=== PATIENT | male | born 1955 | race Caucasian/White ===

== ENCOUNTER 2018-03-27 16:15 | Emergency (ER) | payer SELFPAY ==
[~2018-03-27] VITALS: Ht 180.3 cm; Wt 68.0 kg
[~2018-03-27 16:15] MED LIST: CIPR500T2 PO; CLON-352 PO; ENOX40P SQ; FOLI1TAB PO; LORT5TAB PO; LORT7.5T3 PO; THIA50CA PO; Z.0.NO CURRENT MEDS
[2018-03-27 16:36] VITALS: BP 157/78; PULSE 64; RESP 15; TEMP 98.7; O2SAT 98
[2018-03-27] MEDS ORDERED: IBUP1TAB7 PO (17:38)
--- NOTE | 2018-03-27 17:38 | PD ---
HPI Chief Complaint: Injury Time Seen by Provider: 16:55 Travel History International Travel<30 days: No Contact w/Intl Traveler<30days: No Traveled to known affect area: No History of Present Illness HPI 62-year-old male presents to the emergency department with complaint of right foot pain since Monday after he dropped a chair on it. He thinks that is why it is swollen and and painful, but does not know for sure. Has been ambulatory on the affected extremity. Denies paresthesias, loss of sensation, decreased range of motion, decreased strength to the affected extremity. Has tried ice, warm water, Epsom salts soaks for symptom management. Rates pain 6/10. Described as throbbing. Better at rest. Worse with ambulation, palpation. No primary care provider. No known allergies. Denies significant past medical history. Has no other medical complaints. No other modifying factors or associated signs and symptoms. PFSH Past Medical History Cancer: No Cardiovascular Problems: No Diminished Hearing: No Endocrine: No Genitourinary: No Immune Disorder: No Musculoskeletal: No Neurologic: No Psychiatric: No Reproductive: No Respiratory: No Immunizations Current: No Past Surgical History Other Surgery: Yes (HEMMORHOID SURGERY) Social History Alcohol Use: No (HE USED TO DRINK DAILY 12-18 BEERS.QUIT 41 DAYS AGO ) Tobacco Use: Yes (1 PACK DAILY X 30 YEARS) Substance Use: Yes ([facility] ) Allergies-Medications (Allergen,Severity, Reaction): Coded Allergies: No Known Allergies (Verified , 10/20/09) Reported Meds & Prescriptions Reported Meds & Active Scripts Active Ibuprofen 800 Mg Tab 800 Mg PO Q6HR PRN Ciprofloxacin Hcl 500 Mg Tab 500 Mg PO BID Lortab 5/500 (Acetaminophen/Hydrocodone Bitart) 5 Mg/500 Mg Tab 1 Tab PO Q6HPRN Reported Clonidine HCl ER (Clonidine HCl (Adhd)) 0.1 Mg Tab 0.1 Mg PO Q8 Folate (Folic Acid) 1 Mg Tab 1 Mg PO DAILY Thiamine (Thiamine Hcl) 50 Mg Cap 100 Mg PO DAILY Lortab 7.5/500 (Acetaminophen/Hydrocodone Bitart) Tab 1-2 Tab PO Q6HPRN FOR PAIN Lovenox (Enoxaparin Sodium) 40 Mg/0.4 Ml Inj 40 Mg SQ DAILY 10 Days UNGRADUATED PREFILLED SYRINGE No Current Meds (Miscellaneous Medication) [facility] Review of Systems Except as stated in HPI: all other systems reviewed are Neg Physical Exam Narrative GENERAL: Well-nourished, well-developed male patient, in no acute distress SKIN: Warm and dry. HEAD: Atraumatic. Normocephalic. EYES: Pupils equal and round. No scleral icterus. No injection or drainage. ENT: Mucosa pink and moist. Airway patent. NECK: Trachea midline. CARDIOVASCULAR: Regular rate. RESPIRATORY: No accessory muscle use. GASTROINTESTINAL: Flat. MUSCULOSKELETAL: Metatarsal region of right foot with tenderness on palpation; with edema; without ecchymosis or erythema; no obvious deformity; sensory intact ; 2+ pedal pulse. No obvious deformities. No clubbing. No cyanosis. No edema. NEUROLOGICAL: Awake and alert. Oriented 3. No obvious cranial nerve deficits. Motor grossly within normal limits. Normal speech. PSYCHIATRIC: Appropriate mood and affect; insight and judgment normal. Data Data Last Documented VS Vital Signs Date Time Temp Pulse Resp B/P (MAP) Pulse Ox O2 Delivery O2 Flow Rate FiO2 03/27/18 16:36 98.7 64 15 157/78 (104) 98 Orders Orders Foot, Complete ([id number]) (03/27/18 16:55) [facility] Medical Decision Making Medical Screen Exam Complete: Yes Emergency Medical Condition: Yes Medical Record Reviewed: Yes Differential Diagnosis Foot fracture, foot sprain, foot contusion, foot injury Narrative Course 62-year-old male with right foot injury. I have for the patient pain medication and he declined. Right foot x-ray ordered. 1745: Right foot x-ray concludes: Foot X-Ray 03/27/18 1655 Signed Impressions: CONCLUSION: 1. Oblique fracture through the shaft of the right fifth metatarsal with assoc iated soft tissue swelling. 2. No other evidence of acute injury. Discussed x-ray findings with the patient. Posterior short leg splint ordered. Crutches provided for support. Tramadol and ibuprofen prescribed for home. Mandatory outpatient referral ordered for patient to follow-up. Instructed patient to follow-up with cooker operator. Instructed patient to follow up with primary care provider. Patient verbalizes understanding and agreement with treatment plan. Patient is medically cleared and stable for discharge. Discussed reasons to return to the emergency department. Patient agrees with treatment plan. The patients vital signs are stable and the patient is stable for outpatient follow-up and treatment. Patient discharged home, stable and in no acute distress. Diagnosis Primary Impression: Foot fracture, right Qualified Codes: S92.901A - Unspecified fracture of right foot, initial encounter for closed fracture Referrals: [facility] Primary Care Physician Patient Instructions: Crutch Instructions (ED), Foot Fracture in Adults (ED), General Instructions Additional Instructions: Tylenol or ibuprofen as directed and as needed for pain and inflammation Rest, ice, compress, and elevate extremity to decrease pain and inflammation Splint for support; do not remove splint until cleared by podiatry Crutches/walker for support Avoid aggravating activity; increase activity as tolerated Follow-up with primary care provider Follow-up with podiatry; a mandatory referral has been ordered and you will be called to make an appointment for follow-up Return to the emergency department immediately with worsening of symptoms Med/Other Pt SpecificInfo: Prescription(s) given Scripts Tramadol (Tramadol) 50 Mg Tab 50 MG PO Q4H Y for PAIN, #15 TAB 0 Refills Prov: Alison Bone 03/27/18 Ibuprofen (Ibuprofen) 800 Mg Tab 800 MG PO Q6HR Y for PAIN, #20 TAB 0 Refills Prov: Alison Bone 03/27/18 Disposition: 01 DISCHARGE HOME Condition: Stable Alison Bone Mar 27, 2018 17:38
--- NOTE | 2018-03-27 17:43 | RADRPT ---
EXAM DATE: 03/27/2018 5:19 PM EDT AGE/SEX: 62 years / Male INDICATIONS: Right foot pain and swelling. Patient fell 4 days ago. CLINICAL DATA: This is the patient's initial encounter. Patient reports that signs and symptoms have been present for 4 - 6 days and indicates a pain score of 7/10. MEDICAL/SURGICAL HISTORY: None. None. COMPARISON: No prior exams available for comparison. FINDINGS: An oblique fracture is identified through the mid to distal shaft of the right fifth metatarsal. Ther e is soft tissue swelling along the lateral aspect of the foot. Bony structures are otherwise intact. There is no significant arthropathy. CONCLUSION: 1. Oblique fracture through the shaft of the right fifth metatarsal with associated soft tissue swel ling. 2. No other evidence of acute injury. Electronically signed by: Scottie Magaña MD 03/27/2018 5:42 PM EDT
[2018-03-27] MEDS ORDERED: TRAM50TA PO (17:50)
== END 2018-03-27 18:17 | disposition home or self-care (01) ==
LOC: NEPK 16:15
DX: S92.351A Displaced fracture of fifth metatarsal bone, right foot, initial encounter for closed fracture (principal); F12.90 Cannabis use, unspecified, uncomplicated; F17.200 Nicotine dependence, unspecified, uncomplicated; W20.8XXA Other cause of strike by thrown, projected or falling object, initial encounter
CPT/HCPCS: 29515; 73630; 99283; E0113

== ENCOUNTER 2018-04-03 08:37 | Emergency (ER) | payer SELFPAY ==
[~2018-04-03] VITALS: Ht 180.3 cm; Wt 70.0 kg
[~2018-04-03 08:37] MED LIST changes: +IBUP1TAB7 PO; +TRAM50TA PO
[2018-04-03 08:40] VITALS: BP 136/65; PULSE 72; RESP 16; TEMP 98.4; O2SAT 100
--- NOTE | 2018-04-03 09:12 | PD ---
HPI Chief Complaint: Medical Clearance Time Seen by Provider: 09:01 Travel History International Travel<30 days: No Contact w/Intl Traveler<30days: No Traveled to known affect area: No History of Present Illness HPI The patient is a 62-year-old male who presents to the emergency department for right foot pain. The patient was seen on March 27 for fracture of the fifth metatarsal. The patient was placed in a splint at that time and a mandatory referral for outpatient podiatry follow-up was placed. The patient states he has not heard from a rail transportation operator as of yet in regards to follow-up. The patient has been wearing the splint, however, has been bearing weight, he states he is a "go-getter ". He does admit to drinking alcohol this morning. He denies any significant numbness or tingling of the right lower extremity. Symptoms are mild to moderate. Exacerbated after drop in a chair on the affected foot, and minimally alleviated with a splint. PFSH Past Medical History Cancer: No Cardiovascular Problems: No Diminished Hearing: No Endocrine: No Gastrointestinal Disorders: No Genitourinary: No Hypertension: Yes Immune Disorder: No Musculoskeletal: No Neurologic: No Psychiatric: No Reproductive: No Respiratory: No Immunizations Current: No Tetanus Vaccination: > 5 Years Past Surgical History Other Surgery: No (HEMMORHOID SURGERY) Social History Alcohol Use: No (HE USED TO DRINK DAILY 12-18 BEERS.QUIT 41 DAYS AGO ) Tobacco Use: Yes (1 PACK DAILY X 30 YEARS) Substance Use: Yes ([facility] ) Allergies-Medications (Allergen,Severity, Reaction): Coded Allergies: No Known Allergies (Verified Adverse Reaction, Unknown, 04/03/18) Reported Meds & Prescriptions Reported Meds & Active Scripts Active Tramadol (Tramadol HCl) 50 Mg Tab 50 Mg PO Q4H PRN Ibuprofen 800 Mg Tab 800 Mg PO Q6HR PRN Ciprofloxacin Hcl 500 Mg Tab 500 Mg PO BID Lortab 5/500 (Acetaminophen/Hydrocodone Bitart) 5 Mg/500 Mg Tab 1 Tab PO Q6HPRN Reported Clonidine HCl ER (Clonidine HCl (Adhd)) 0.1 Mg Tab 0.1 Mg PO Q8 Folate (Folic Acid) 1 Mg Tab 1 Mg PO DAILY Thiamine (Thiamine Hcl) 50 Mg Cap 100 Mg PO DAILY Lortab 7.5/500 (Acetaminophen/Hydrocodone Bitart) Tab 1-2 Tab PO Q6HPRN FOR PAIN Lovenox (Enoxaparin Sodium) 40 Mg/0.4 Ml Inj 40 Mg SQ DAILY 10 Days UNGRADUATED PREFILLED SYRINGE No Current Meds (Miscellaneous Medication) Misc Review of Systems Except as stated in HPI: all other systems reviewed are Neg Cardiovascular: No: Chest Pain or Discomfort Respiratory: No: Shortness of Breath Gastrointestinal: No: Nausea, Vomiting, Abdominal Pain Musculoskeletal: Positive: Pain Neurologic: No: Paresthesia, Sensory Disturbance Physical Exam Narrative GENERAL: Awake, alert, pleasant 62-year-old male who appears his stated age and is in no acute respiratory distress. SKIN: Focused skin assessment warm/dry. HEAD: Atraumatic. Normocephalic. EYES: No injection or drainage. MUSCULOSKELETAL: Right lower extremities placed in a splint. He is able to move the toes of the right foot. Toes are warm to touch. NEUROLOGICAL: Awake and alert. No obvious cranial nerve deficits. Motor grossly within normal limits. Normal speech. Nonfocal. PSYCHIATRIC: Appropriate mood and affect; insight and judgment normal. Data Data Last Documented VS Vital Signs Date Time Temp Pulse Resp B/P (MAP) Pulse Ox O2 Delivery O2 Flow Rate FiO2 04/03/18 08:40 98.4 72 16 136/65 (88) 100 MDM Medical Decision Making Medical Screen Exam Complete: Yes Emergency Medical Condition: Yes Medical Record Reviewed: Yes Differential Diagnosis Differential diagnosis includes fracture, dislocation, contusion, sprain, strain Narrative Course I reviewed the patient's EMR including the x-ray that was performed on March 27, patient has oblique fracture through the fifth metatarsal. The patient was placed in a splint at that time and a mandatory referral for outpatient podiatry was placed to Dr. Ley. I discussed the patient with case management who states the mandatory referral was placed on March 29. Case management was contacted, they had a discussion with the patient and will call podiatry in regards to outpatient follow-up. As soon as the patient's follow- up is finalized the patient will be discharged. He is advised to wear crutches and or use a walking stick to avoid direct placement on the right foot. Diagnosis Primary Impression: Fracture of fifth metatarsal bone of right foot Qualified Codes: S92.351D - Displaced fracture of fifth metatarsal bone, right foot, subsequent encounter for fracture with routine healing Patient Instructions: General Instructions Additional Instructions: Follow-up with podiatry. Elevate leg. Tylenol and/or Motrin as needed for pain. Decrease alcohol intake. Disposition: 01 DISCHARGE HOME Condition: Stable Cesar Gonzalez MD Apr 03, 2018 09:12
[2018-04-03 09:44] VITALS: BP 124/64
== END 2018-04-03 09:43 | disposition home or self-care (01) ==
LOC: NEPD 08:37
DX: S92.351D Displaced fracture of fifth metatarsal bone, right foot, subsequent encounter for fracture with routine healing (principal); I10 Essential (primary) hypertension; F17.200 Nicotine dependence, unspecified, uncomplicated; Z79.899 Other long term (current) drug therapy; X58.XXXD Exposure to other specified factors, subsequent encounter
CPT/HCPCS: 99282

== ENCOUNTER 2018-04-05 11:15 | Emergency (ER) | payer SELFPAY ==
[~2018-04-05] VITALS: Ht 180.3 cm; Wt 68.0 kg
[~2018-04-05 11:15] MED LIST changes: -CIPR500T2 PO; -CLON-352 PO; -ENOX40P SQ; -FOLI1TAB PO; -IBUP1TAB7 PO; -LORT5TAB PO; -LORT7.5T3 PO; -THIA50CA PO; -Z.0.NO CURRENT MEDS
[2018-04-05 11:29] VITALS: BP 140/93; PULSE 63; RESP 16; TEMP 97.8; O2SAT 97
--- NOTE | 2018-04-05 11:44 | PD ---
HPI Chief Complaint: Musculoskeletal Complaint Time Seen by Provider: 11:28 Travel History International Travel<30 days: No Contact w/Intl Traveler<30days: No Traveled to known affect area: No History of Present Illness HPI 62-year-old male presents to the emergency department sent by Dr. Ley for a cam boot. He has a written prescription. I saw this patient on March 27 and he had a right fifth metatarsal fracture and I put in a mandatory referral, and he followed up with Dr. Ley and was sent back to us for cam boot. Patient has been ambulatory in the affected extremity. He does have a temporary splint in place at this time. He denies paresthesias, loss of sensation to the affected extremity. He denies pain. Symptoms are mild in severity. No known aggravating or relieving factors. Onset March 24. Duration 12 days. No known allergies. No primary care provider. Has no other medical complaints. No other modifying factors or associated signs and symptoms. PFSH Past Medical History Cancer: No Cardiovascular Problems: No Diminished Hearing: No Endocrine: No Gastrointestinal Disorders: No Genitourinary: No Hypertension: Yes Immune Disorder: No Musculoskeletal: No Neurologic: No Psychiatric: No Reproductive: No Respiratory: No Immunizations Current: No Past Surgical History Other Surgery: No (HEMMORHOID SURGERY) Social History Alcohol Use: No (HE USED TO DRINK DAILY 12-18 BEERS.QUIT 41 DAYS AGO ) Tobacco Use: Yes (1 PACK DAILY X 30 YEARS) Substance Use: Yes ([facility] ) Allergies-Medications (Allergen,Severity, Reaction): Coded Allergies: No Known Allergies (Verified Adverse Reaction, Unknown, 04/05/18) Reported Meds & Prescriptions Reported Meds & Active Scripts Active Tramadol (Tramadol HCl) 50 Mg Tab 50 Mg PO Q4H PRN Review of Systems Except as stated in HPI: all other systems reviewed are Neg Physical Exam Narrative GENERAL: Well-nourished, well-developed male patient, in no acute distress; disheveled SKIN: Warm and dry. HEAD: Atraumatic. Normocephalic. EYES: Pupils equal and round. No scleral icterus. No injection or drainage. ENT: Mucosa pink and moist. Airway patent. NECK: Trachea midline. CARDIOVASCULAR: Regular rate. RESPIRATORY: No accessory muscle use. GASTROINTESTINAL: Flat. MUSCULOSKELETAL: Right foot is mildly edematous and with tenderness on palpation to the fifth metatarsal region; without erythema, ecchymosis; 2+ pedal pulse; sensory intact. Right lower extremity is supple and non-tense. No obvious deformities. No clubbing. No cyanosis. No edema. NEUROLOGICAL: Awake and alert. Oriented 3. No obvious cranial nerve deficits. Motor grossly within normal limits. Normal speech. PSYCHIATRIC: Appropriate mood and affect; insight and judgment normal. Data Data Last Documented VS Vital Signs Date Time Temp Pulse Resp B/P (MAP) Pulse Ox O2 Delivery O2 Flow Rate FiO2 04/05/18 11:29 97.8 63 16 140/93 (109) 97 Orders Orders Boot Fracture (04/05/18 ) [facility] Medical Decision Making Medical Screen Exam Complete: Yes Emergency Medical Condition: Yes Medical Record Reviewed: Yes Differential Diagnosis Foot fracture, medical clerical assistant, splinting Narrative Course 62-year-old male, sent by Dr. Ley, for CAM boot secondary to right fifth metatarsal fracture. Cam boot ordered and placed. Patient says Dr. Ley wants to see him in 4-6 weeks. Instructed patient to follow-up with Dr. Ley as advised. Instructed patient to follow up with primary care provider. Patient verbalizes understanding and agreement with treatment plan. Patient is medically cleared and stable for discharge. Discussed reasons to return to the emergency department. Patient agrees with treatment plan. The patients vital signs are stable and the patient is stable for outpatient follow- up and treatment. Patient discharged home, stable and in no acute distress. Diagnosis Primary Impression: Aftercare for cast or splint check or change Referrals: Kenroy Ley [facility] Primary Care Physician Patient Instructions: Foot Fracture in Adults (ED), General Instructions Additional Instructions: Tylenol or ibuprofen as directed and as needed for pain and inflammation Rest, ice, compress, and elevate extremity to decrease pain and inflammation Splint for support Cane for support Avoid aggravating activity; increase activity as tolerated Follow-up with primary care provider Follow-up with Dr. Ley in 4-6 weeks as advised Return to the emergency department immediately with worsening of symptoms Med/Other Pt SpecificInfo: No Change to Meds, No Meds Exist/No RX given Disposition: DISCHARGE HOME Condition: Stable Alison Bone Apr 05, 2018 11:44
== END 2018-04-05 12:15 | disposition home or self-care (01) ==
LOC: NEPK 11:15
DX: S92.351D Displaced fracture of fifth metatarsal bone, right foot, subsequent encounter for fracture with routine healing (principal); Z47.89 Encounter for other orthopedic aftercare; I10 Essential (primary) hypertension; F17.200 Nicotine dependence, unspecified, uncomplicated; F12.90 Cannabis use, unspecified, uncomplicated; X58.XXXD Exposure to other specified factors, subsequent encounter
CPT/HCPCS: 99282; L2114